=== PATIENT | female | born 1990 | race Caucasian/White ===

== ENCOUNTER 2020-03-21 05:21 | Inpatient (IN) | payer OTHER ==
[2020-03-21] MEDS ORDERED: Sodium Chloride 0.9% 10 ML Syringe FLUSH PRN (05:40)
[2020-03-21] MEDS ORDERED: Sodium Chloride 0.9% 10 ML SDV IV PRN (05:40)
[2020-03-21] MEDS ORDERED: Sodium Chloride 0.9% 2.5 ML Syringe FLUSH PRN (05:40)
[2020-03-21] MEDS ORDERED: Citric Acid/Sodium Citrate Solution 30 ML Cup PO ONE (05:40)
[2020-03-21] MEDS ORDERED: Oxytocin/0.9 % Sodium Chloride 30 UNIT/500 ML BAG IV SCH (05:45)
[2020-03-21] MEDS: Lactated Ringers 1,000 ML IV SCH ×2 (06:03→07:09)
[2020-03-21] MEDS ORDERED: Sodium Chloride 0.9% 20 ML ONE (07:07)
[2020-03-21] MEDS ORDERED: Morphine PF 10 MG/10 ML SDV ONE (07:07)
[2020-03-21] MEDS ORDERED: ceFAZolin 1 GM Vial ONE (07:07)
[2020-03-21] MEDS ORDERED: Phenylephrine 1% 10 MG/ML SDV ONE (07:09)
--- NOTE | 2020-03-21 07:13 | PCM.PREANE ---
Preanesthetic Assessment - Anesthesia/Transfusion/Family Hx Anesthesia History: Prior Anesthesia Without Reaction (prior labor epidural, no prior c/s or spinal) Family History of Anesthesia Reaction: No Transfusion History: No Prior Transfusion(s) Type of Transfusion Reactions: Reports: Unknown Intubation History: Unknown - Review of Systems General: No Symptoms Pulmonary: No Symptoms Cardiovascular: No Symptoms Gastrointestinal: No Symptoms Neurological: No Symptoms Other: Reports: None - Physical Assessment NPO Status Date: 03/20/20 Height: 5 ft 8 in Weight: 83.007 kg ASA Class: 2 Mental Status: Alert & Oriented x3 Airway Class: Mallampati = 1 Dentition: Reports: Normal Dentition ROM/Head Extension: Full Lungs: Clear to Auscultation, Normal Respiratory Effort Cardiovascular: Regular Rhythm - Lab Values: Laboratory Last Values WBC 8.71 K/uL (4.0-11.0) 03/21/20 06:00 RBC 3.49 M/uL (4.30-5.90) L 03/21/20 06:00 Hgb 9.6 g/dL (12.0-16.0) L 03/21/20 06:00 Hct 29.5 % (36.0-46.0) L 03/21/20 06:00 MCV 84.5 fL (80.0-98.0) 03/21/20 06:00 MCH 27.5 pg (27.0-32.0) 03/21/20 06:00 MCHC 32.5 g/dL (31.0-37.0) 03/21/20 06:00 RDW Std Deviation 39.7 fl (28.0-62.0) 03/21/20 06:00 RDW Coeff of Cathi 13 % (11.0-15.0) 03/21/20 06:00 Plt Count 275 K/uL (150-400) 03/21/20 06:00 MPV 10.20 fL (7.40-12.00) 03/21/20 06:00 Nucleated RBC % 0.0 /100WBC 03/21/20 06:00 Nucleated RBCs # 0 K/uL 03/21/20 06:00 Blood Type A POSITIVE 03/21/20 06:00 Antibody Screen NEGATIVE 03/21/20 06:00 - Allergies Allergies/Adverse Reactions: Allergies Allergy/AdvReac Type Severity Reaction Status Date / Time No Known Allergies Allergy Verified 03/21/20 05:40 - Anesthesia Plan Pre-Op Medication Ordered: Antacids - Acknowledgements Anesthesia Type Planned: Spinal Pt an Appropriate Candidate for the Planned Anesthesia: Yes Alternatives and Risks of Anesthesia Discussed w Pt/Guardian: Yes Pt/Guardian Understands and Agrees with Anesthesia Plan: Yes Additional Comments: pmh: gest DM, on metformin, last dose yesterday plan: spinal with intrathecal duramorph PreAnesthesia Questionnaire - Past Health History Medical/Surgical History: Denies Medical/Surgical History HEENT History: Reports: Other (See Below) Other HEENT History: wears glasses/contacts Cardiovascular History: Reports: None Respiratory History: Reports: None Gastrointestinal History: Reports: None Genitourinary History: Reports: None 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: , 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 Musculoskeletal History: Reports: Fracture Other Musculoskeletal History: hx of bilateral fx wrists, thumb and pinky finger - no hardware Neurological History: Reports: Other (See Below) Other Neuro History: hx of motion sickness Psychiatric History: Reports: Anxiety, Depression Endocrine/Metabolic History: Reports: Diabetes, Gestational Hematologic History: Reports: None Immunologic History: Reports: None Oncologic (Cancer) History: Reports: None Dermatologic History: Reports: None - Infectious Disease History Infectious Disease History: Reports: Chicken Pox - Past Surgical History Head Surgeries/Procedures: Reports: None HEENT Surgical History: Reports: Oral Surgery Other HEENT Surgeries/Procedures: wisdom teeth Female Surgical History: Reports: D&C - SUBSTANCE USE Smoking Status *Q: Never Smoker Recreational Drug Use History: No - HOME MEDS Home Medications: Home Meds No122/Iron/Folic Acid [ Multi Tablet] 1 tab PO DAILY 03/14/20 [ History] metFORMIN [Glucophage] 500 mg PO BID 03/14/20 [History] - CURRENT (IN HOUSE) MEDS Current Meds: Current Medications Lactated Ringer's (Ringers, Lactated) 1,000 mls @ 500 mls/hr IV BOLUS DORA Last Admin: 03/21/20 07:09 Dose: 500 mls/hr Oxytocin/Sodium Chloride (Oxytocin 30 Unit/500 Ml-Ns) 30 unit in 500 mls @ 250 mls/hr IV TITRATE DORA Sodium Chloride (Saline Flush) 10 ml FLUSH ASDIRECTED PRN PRN Reason: Keep Vein Open Sodium Chloride (Saline Flush) 2.5 ml FLUSH ASDIRECTED PRN PRN Reason: Keep Vein Open Sodium Chloride (Normal Saline) 10 ml IV ASDIRECTED PRN PRN Reason: IV Use Discontinued Medications Cefazolin Sodium (Ancef) Confirm Administered Dose 2 gm .ROUTE .STK-MED ONE Stop: 03/21/20 07:08 Citric Acid/Sodium Citrate (Bicitra Solution) 30 ml PO ONETIME ONE Stop: 03/21/20 05:41 Sodium Chloride (Normal Saline) Confirm Administered Dose 20 mls @ as directed .ROUTE .STK-MED ONE Stop: 03/21/20 07:08 Morphine Sulfate (Duramorph Pf) Confirm Administered Dose 10 mg .ROUTE .STK-MED ONE Stop: 03/21/20 07:08
[2020-03-21] MEDS ORDERED: fentaNYL 100 MCG/2 ML SDV IVPUSH PRN (07:14)
[2020-03-21] MEDS ORDERED: Acetaminophen/oxyCODONE 325-5 MG Tab PO PRN ×2 (07:14→08:34)
[2020-03-21] MEDS ORDERED: Nalbuphine 10 MG/1 ML Vial IVPUSH PRN (07:14)
[2020-03-21] MEDS ORDERED: Citric Acid/Sodium Citrate Solution 30 ML Cup ONE (07:37)
--- NOTE | 2020-03-21 07:46 | PCM.LDHP ---
L&D History of Present Illness - General Date of Service: 03/21/20 Admit Problem/Dx: Patient Status Order with Admit Dx/Problem 03/21/20 05:20 Patient Status [ADT] Routine Admission Diagnosis/Problem Admission Diagnosis/Problem Source of Information: Patient History Limitations: Reports: No Limitations - History of Present Illness Improves with: Reports: None Worsens with: Reports: None Associated Symptoms: Reports: N - Related Data Allergies/Adverse Reactions: Allergies Allergy/AdvReac Type Severity Reaction Status Date / Time No Known Allergies Allergy Verified 03/21/20 05:40 Home Medications: Home Meds No122/Iron/Folic Acid [ Multi Tablet] 1 tab PO DAILY 03/14/20 [ History] metFORMIN [Glucophage] 500 mg PO BID 03/14/20 [History] Past Medical History - Past Health History Medical/Surgical History: Denies Medical/Surgical History HEENT History: Reports: Other (See Below) Other HEENT History: wears glasses/contacts Cardiovascular History: Reports: None Respiratory History: Reports: None Gastrointestinal History: Reports: None Genitourinary History: Reports: None 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: , 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 Musculoskeletal History: Reports: Fracture Other Musculoskeletal History: hx of bilateral fx wrists, thumb and pinky finger - no hardware Neurological History: Reports: Other (See Below) Other Neuro History: hx of motion sickness Psychiatric History: Reports: Anxiety, Depression Endocrine/Metabolic History: Reports: Diabetes, Gestational Hematologic History: Reports: None Immunologic History: Reports: None Oncologic (Cancer) History: Reports: None Dermatologic History: Reports: None - Infectious Disease History Infectious Disease History: Reports: Chicken Pox - Past Surgical History Head Surgeries/Procedures: Reports: None HEENT Surgical History: Reports: Oral Surgery Other HEENT Surgeries/Procedures: wisdom teeth Female Surgical History: Reports: D&C Social & Family History - Family History Family Medical History: Noncontributory Cardiac: Reports: None Respiratory: Reports: None GI: Reports: None : Reports: None OBGYN: Reports: None Musculoskeletal: Reports: None Neurological: Reports: None Psychiatric: Reports: None Endocrine/Metabolic: Reports: Diabetes, type II, Other (See Below) Other Endocrine/Metabolic Family History: Uncle- borderline blood glucose levels Hematologic: Reports: Other (See Below) Other Hematologic Family History: Uncle in the dad side has Factor V problems Immunologic: Reports: None Dermatologic: Reports: None Oncologic: Reports: Bone, Breast, Lung - Tobacco Use Smoking Status *Q: Never Smoker - Caffeine Use Caffeine Use: Reports: None - Recreational Drug Use Recreational Drug Use: No Drug Use in Last 12 Months: No H&P Review of Systems - Review of Systems: Review Of Systems: See Below General: Reports: No Symptoms HEENT: Reports: No Symptoms Pulmonary: Reports: No Symptoms Cardiovascular: Reports: No Symptoms Gastrointestinal: Reports: No Symptoms Genitourinary: Reports: No Symptoms Musculoskeletal: Reports: No Symptoms Skin: Reports: No Symptoms Psychiatric: Reports: No Symptoms Neurological: Reports: No Symptoms Hematologic/Lymphatic: Reports: No Symptoms Immunologic: Reports: No Symptoms L&D Exam - Exam Exam: See Below - Vital Signs Weight: 83.007 kg - OB Specific Contraction Intensity: Mild Movement: Active Heart Tones: Present Presentation: Vertex - Earl Score Aerl Score Cervix Position: Anterior Earl Score Consistency: Medium Earl Score Effacement: 51-70% Earl Score Dilation: Closed Earl Score Infant's Station: -3 Earl Score Total: 5 - Exam General: Alert, Oriented HEENT: PERRLA, Conjunctiva Clear, EACs Clear, EOMI, Hearing Intact, Mucosa Moist & Justice Addition, Nares Patent, Normal Nasal Septum, Posterior Pharynx Clear, TMs Clear Neck: Supple, Trachea Midline Lungs: Clear to Auscultation, Normal Respiratory Effort Cardiovascular: Regular Rate, Regular Rhythm GI/Abdominal Exam: Normal Bowel Sounds, Soft, Non-Tender, No Organomegaly, No Distention, No Abnormal Bruit, No Mass, Pelvis Stable Rectal Exam: Normal Exam, Normal Rectal Tone Genitourinary: Normal external exam, Normal bimanual exam, Normal speculum exam Back Exam: Normal Inspection, Full Range of Motion Extremities: Normal Inspection, Normal Range of Motion, Non-Tender, No Pedal Edema, Normal Capillary Refill Skin: Warm, Dry, Intact Neurological: Cranial Nerves Intact, Reflexes Equal Bilateral Psychiatric: Alert, Normal Affect, Normal Mood - Patient Data Lab Results Last 24 hrs: Laboratory Results - last 24 hr 03/21/20 03/21/20 Range/Units 06:00 06:00 WBC 8.71 (4.0-11.0) K/uL RBC 3.49 L (4.30-5.90) M/uL Hgb 9.6 L (12.0-16.0) g/dL Hct 29.5 L (36.0-46.0) % MCV 84.5 (80.0-98.0) fL MCH 27.5 (27.0-32.0) pg MCHC 32.5 (31.0-37.0) g/dL RDW Std Deviation 39.7 (28.0-62.0) fl RDW Coeff of Cathi 13 (11.0-15.0) % Plt Count 275 (150-400) K/uL MPV 10.20 (7.40-12.00) fL Nucleated RBC % 0.0 /100WBC Nucleated RBCs # 0 K/uL Blood Type A POSITIVE Antibody Screen NEGATIVE Result Diagrams: 03/21/20 06:00 Problem List Initiated/Reviewed/Updated: Yes Orders Last 24hrs: Active Orders 24 hr Category Date Time Status Patient Status [ADT] Routine ADT 03/21/20 05:20 Active Bradycardia-Neuroaxis [employer] [RC] ROUTINE Care 03/21/20 07:14 Active Non Stress Test [RC] PER UNIT ROUTINE Care 03/21/20 05:40 Active Hypertension-Neuroaxis [employer] [RC] ROUTINE Care 03/21/20 07:14 Active Hypotension-Neuroaxis [employer] [RC] ROUTINE Care 03/21/20 07:14 Active Notify Provider Vital Signs [RC] PRN Care 03/21/20 05:43 Active Oxygen Therapy [RC] PER UNIT ROUTINE Care 03/21/20 07:14 Active Procedure Site Prep Instruct [RC] ASDIRECTED Care 03/21/20 05:[address] [RC] ASDIRECTED Care 03/21/20 05:40 Active Verify Patient Consent Obtain [RC] ASDIRECTED Care 03/21/20 05:40 Active Vital Signs [RC] PER UNIT ROUTINE Care 03/21/20 05:40 Active Vital Signs [RC] Q1H Care 03/21/20 07:14 Active RPR (SYPHILIS SERO) W/ RFLX [REF] Routine Lab 03/21/20 06:00 Received Acetaminophen/oxyCODONE [Percocet 325-5 MG] Med 03/21/20 07:14 Active 1 tab PO ONETIME PRN Lactated Ringers [Ringers, Lactated] 1,000 ml Med 03/21/20 05:45 Active IV BOLUS Nalbuphine [Nubain] Med 03/21/20 07:14 Active 2.5 mg IVPUSH Q3H PRN Oxytocin/0.9 % Sodium Chloride [Oxytocin 30 Unit/500 ML Med 03/21/20 05:45 Active -NS] 30 unit in 500 ml IV TITRATE Sodium Chloride 0.9% [Normal Saline] Med 03/21/20 05:40 Active 10 ml IV ASDIRECTED PRN Sodium Chloride 0.9% [Saline Flush] Med 03/21/20 05:40 Active 10 ml FLUSH ASDIRECTED PRN Sodium Chloride 0.9% [Saline Flush] Med 03/21/20 05:40 Active 2.5 ml FLUSH ASDIRECTED PRN fentaNYL [Sublimaze] Med 03/21/20 07:14 Active 50 mcg IVPUSH Q5M PRN AN Neuroaxis Duramorph Precaution Reflex [OM.PC] PER Oth 03/21/20 07:15 Ordered UNIT ROUTINE AN Neuroaxis Duramorph Precaution Reflex [OM.PC] PER Oth 03/22/20 07:15 Ordered UNIT ROUTINE Peripheral IV Insertion Adult [OM.PC] Routine Oth 03/21/20 05:40 Ordered Schedule Procedure [COMM] Per Unit Routine Oth 03/21/20 05:40 Ordered Resuscitation Status Routine Resus Stat 03/21/20 05:40 Ordered Medication Orders Fentanyl (Sublimaze) 50 mcg IVPUSH Q5M PRN PRN Reason: Pain (severe 7-10) Stop: 03/22/20 07:15 Lactated Ringer's (Ringers, Lactated) 1,000 mls @ 500 mls/hr IV BOLUS DORA Last Admin: 03/21/20 07:09 Dose: 500 mls/hr Infusion: 03/21/20 07:09 Dose: 500 mls/hr Admin: 03/21/20 06:03 Dose: 500 mls/hr Oxytocin/Sodium Chloride (Oxytocin 30 Unit/500 Ml-Ns) 30 unit in 500 mls @ 250 mls/hr IV TITRATE DORA Nalbuphine HCl (Nubain) 2.5 mg IVPUSH Q3H PRN PRN Reason: Pruritis Stop: 03/22/20 07:15 Oxycodone/Acetaminophen (Percocet 325-5 Mg) 1 tab PO ONETIME PRN PRN Reason: Pain (moderate 4-6) Sodium Chloride (Saline Flush) 10 ml FLUSH ASDIRECTED PRN PRN Reason: Keep Vein Open Sodium Chloride (Saline Flush) 2.5 ml FLUSH ASDIRECTED PRN PRN Reason: Keep Vein Open Sodium Chloride (Normal Saline) 10 ml IV ASDIRECTED PRN PRN Reason: IV Use Assessment/Plan Comment:: 39wks admitted for elective repeat C/section.
[2020-03-21] MEDS ORDERED: Octyl 2-Cyanoacrylate 1 Tube ONE (08:27)
[2020-03-21] MEDS ORDERED: Misoprostol 200 MCG Tab RECTAL PRN (08:34)
[2020-03-21] MEDS ORDERED: Bisacodyl 10 MG Supp RECTAL PRN (08:34)
[2020-03-21] MEDS ORDERED: Ondansetron 4 MG/2 ML SDV IVPUSH PRN (08:34)
[2020-03-21] MEDS ORDERED: Methylergonovine 0.2 MG/1 ML Amp IM PRN (08:34)
[2020-03-21] MEDS ORDERED: diphenhydrAMINE 50 MG/ML SDV IVPUSH PRN (08:34)
[2020-03-21] MEDS ORDERED: Tranexamic Acid 1,000 MG in Sodium Chloride 0.9% 100 ML IV PRN (08:34)
[2020-03-21] MEDS ORDERED: Oxytocin 10 Units/1 ML SDV IM PRN (08:34)
[2020-03-21] MEDS ORDERED: Lanolin 100% Cream 7 GM Tube TOP PRN (08:34)
--- NOTE | 2020-03-21 08:41 | PCM.OPNOTE ---
- General Post-Op/Procedure Note Date of Surgery/Procedure: 03/21/20 Operative Procedure(s): Primary C/section. Pre Op Diagnosis: IUP 39+wks. Post-Op Diagnosis: Same Anesthesia Technique: Spinal Primary Surgeon: Cheng Keller Afterschool Babysitter: Mikaela Kothari EBL in mLs: 650 Complications: None Condition: Good
[2020-03-21] MEDS ORDERED: Lactated Ringers 1,000 ML IV SCH (08:45)
[2020-03-21] MEDS: Ketorolac 30 MG/ML SDV IVPUSH SCH ×3 (15:03→20:52)
--- NOTE | 2020-03-21 15:14 | OR ---
SURGEON: Cheng Kelelr MD DATE OF PROCEDURE: 03/21/2020 PREOPERATIVE DIAGNOSIS: Intrauterine at 39 weeks plus admitted for primary elective section. POSTOPERATIVE DIAGNOSIS: Intrauterine at 39 weeks plus admitted for primary elective section. OPERATION PERFORMED: Primary low transverse section. PRIMARY SURGEON: Cheng Keller MD BRUSHER MACHINE: Mikaela Kothari, certified nurse clutch operator. ANESTHESIA: Spinal, Alex Granados and Dr. Tolentino. ESTIMATED BLOOD LOSS: 650 mL. COMPLICATIONS: None. FINDINGS: Male fetus. score reported to be 8 and 9. Weight is not available. INDICATIONS FOR SURGERY: This patient is 29. She is para 1-0-0-1. She had a previous normal spontaneous vaginal delivery complicated by a fourth-degree laceration. The patient stated, after that, she had a slow recovery from the fourth degree, and she feels that this baby is bigger than the first one, and she would like to have elective primary low transverse section, which is her choice and her right. PROCEDURE IN DETAIL: The patient was brought to the OR, properly identified. After adequate level of spinal anesthesia with a Estrada catheter in the bladder, the patient was prepped and draped in sterile fashion as usual. Low transverse Pfannenstiel skin incision done. Gregg's fascia and rectus fascia were opened in direction of the incision. The two recti muscles were and peritoneal cavity was entered. Bladder flap was raised in the usual manner, pushing the bladder away from the lower uterine segment. Low transverse uterine incision done and extended manually with hand. Fetus was in the vertex position, delivered without any problem, cried immediately. score later on reported to be 8 and 9. The weight is not available at the time of the dictation. The placenta delivered spontaneous, complete, and intact, and repair of the lower uterine segment was done with 2-0 Vicryl continuous interlocking in 2 layers. Reperitonealization done with 3-0 Vicryl continuous and then the peritoneal cavity evacuated completely from all blood, blood clot, and amniotic fluid and closed with 3-0 Vicryl continuous and the rectus fascia closed with #1 PDS continuous, Gregg's fascia with 3-0 Vicryl continuous, and the skin closed with 3-0 on a Jovan needle in subcuticular fashion and Dermabond. Instrument and sponge count was correct. The patient tolerated the procedure well, went to recovery room in stable general condition. ABELINO NEVAREZ /[id number]
[2020-03-21] MEDS: Docusate Sodium 100 MG Cap PO SCH ×2 (18:04→20:53)
[2020-03-22] MEDS: Ketorolac 30 MG/ML SDV IVPUSH SCH ×2 (02:53→09:01)
--- NOTE | 2020-03-22 07:35 | PCM48HPAN ---
Post Anesthesia Note - EVALUATION WITHIN 48HRS OF ANESTHETIC Vital Signs in Normal Range: Yes Patient Participated in Evaluation: Yes Respiratory Function Stable: Yes Airway Patent: Yes Cardiovascular Function Stable: Yes Hydration Status Stable: Yes Pain Control Satisfactory: Yes Nausea and Vomiting Control Satisfactory: Yes Mental Status Recovered: Yes Vital Signs: Last Vital Signs Temp 36.4 C 03/22/20 04:00 Pulse 84 03/22/20 07:00 Resp 17 03/22/20 07:00 BP 102/53 L 03/22/20 04:00 Pulse Ox 97 03/22/20 07:00
--- NOTE | 2020-03-22 07:35 | PCM.POSTAN ---
POST ANESTHESIA ASSESSMENT - MENTAL STATUS Mental Status: Alert - VITAL SIGNS Vital Signs: Last Vital Signs Temp 36.4 C 03/22/20 04:00 Pulse 84 03/22/20 07:00 Resp 17 03/22/20 07:00 BP 102/53 L 03/22/20 04:00 Pulse Ox 97 03/22/20 07:00 - RESPIRATORY Respiratory Status: Respiratory Rate WNL - CARDIOVASCULAR CV Status: Pulse Rate WNL - GASTROINTESTINAL GI Status: No Symptoms - POST OP HYDRATION Hydration Status: Adequate & Stable
--- NOTE | 2020-03-22 07:56 | PCM.PNPP ---
- General Info Date of Service: 03/22/20 Admission Dx/Problem (Free Text): Patient Status Order with Admit Dx/Problem 03/21/20 05:20 Patient Status [ADT] Routine Admission Diagnosis/Problem Admission Diagnosis/Problem Functional Status: Reports: Pain Controlled, Tolerating Diet, Ambulating, Urinating - Review of Systems General: Reports: No Symptoms HEENT: Reports: No Symptoms Pulmonary: Reports: No Symptoms Cardiovascular: Reports: No Symptoms Gastrointestinal: Reports: No Symptoms Genitourinary: Reports: No Symptoms Musculoskeletal: Reports: No Symptoms Skin: Reports: No Symptoms Neurological: Reports: No Symptoms Psychiatric: Reports: No Symptoms - General Info Date of Service: 03/22/20 - Patient Data Vital Signs - Most Recent: Last Vital Signs Temp 97.4 F 03/22/20 07:45 Pulse 76 03/22/20 07:45 Resp 16 03/22/20 07:45 BP 98/57 L 03/22/20 07:45 Pulse Ox 97 03/22/20 07:00 Weight - Most Recent: 183 lb I&O - Last 24 Hours: Intake & Output 03/21/20 03/22/20 03/22/20 22:59 06:59 14:59 Output Total 1400 2200 Balance -1400 -2200 Lab Results - Last 24 Hours: Laboratory Results - last 24 hr 03/22/20 Range/Units 05:47 Hgb 8.9 L (12.0-16.0) g/dL Hct 27.9 L (36.0-46.0) % Med Orders - Current: Current Medications Bisacodyl (Dulcolax) 10 mg RECTAL ONETIME PRN PRN Reason: Constipation Diphenhydramine HCl (Benadryl) 25 mg IVPUSH Q6H PRN PRN Reason: Itching or Nausea Docusate Sodium (Colace) 100 mg PO BID [facility] Last Admin: 03/21/20 20:53 Dose: 100 mg Emollient Ointment (Lansinoh Hpa) 0 gm TOP ASDIRECTED PRN PRN Reason: Sore Nipples Lactated Ringer's (Ringers, Lactated) 1,000 mls @ 500 mls/hr IV BOLUS [facility] Last Admin: 03/21/20 07:09 Dose: 500 mls/hr Oxytocin/Sodium Chloride (Oxytocin 30 Unit/500 Ml-Ns) 30 unit in 500 mls @ 250 mls/hr IV TITRATE [facility] Tranexamic Acid 1,000 mg/ (Sodium Chloride) 110 mls @ 660 mls/hr IV ONETIME PRN PRN Reason: Bleeding Lactated Ringer's (Ringers, Lactated) 1,000 mls @ 125 mls/hr IV ASDIRECTED [facility] Last Admin: 03/21/20 11:00 Dose: 125 mls/hr Ibuprofen (Motrin) 800 mg PO Q8H PRN PRN Reason: mild pain or fever Ketorolac Tromethamine (Toradol) 30 mg IVPUSH Q6H [facility] Stop: 03/22/20 08:46 Last Admin: 03/22/20 02:53 Dose: 30 mg Methylergonovine Maleate (Methergine) 0.2 mg IM ONETIME PRN PRN Reason: Excessive Vaginal Bleeding Misoprostol (Cytotec) 1,000 mcg RECTAL ONETIME PRN PRN Reason: excessive bleeding Ondansetron HCl (Zofran) 4 mg IVPUSH Q4H PRN PRN Reason: Nausea/Vomiting Oxycodone/Acetaminophen (Percocet 325-5 Mg) 1 tab PO ONETIME PRN PRN Reason: Pain (moderate 4-6) Oxycodone/Acetaminophen (Percocet 325-5 Mg) 1 tab PO Q4H PRN PRN Reason: Pain (moderate 4-6) Oxycodone/Acetaminophen (Percocet 325-5 Mg) 2 tab PO Q4H PRN PRN Reason: Pain (moderate 4-6) Oxytocin (Pitocin) 10 unit IM ASDIRECTED PRN PRN Reason: Excessive Vaginal Bleeding Sodium Chloride (Saline Flush) 10 ml FLUSH ASDIRECTED PRN PRN Reason: Keep Vein Open Sodium Chloride (Saline Flush) 2.5 ml FLUSH ASDIRECTED PRN PRN Reason: Keep Vein Open Sodium Chloride (Normal Saline) 10 ml IV ASDIRECTED PRN PRN Reason: IV Use Discontinued Medications Cefazolin Sodium (Ancef) Confirm Administered Dose 2 gm .ROUTE .STK-MED ONE Stop: 03/21/20 07:08 Citric Acid/Sodium Citrate (Bicitra Solution) 30 ml PO ONETIME ONE Stop: 03/21/20 05:41 Last Admin: 03/21/20 07:32 Dose: 30 ml Citric Acid/Sodium Citrate (Bicitra Solution) Confirm Administered Dose 30 ml .ROUTE .STK-MED ONE Stop: 03/21/20 07:38 Last Admin: 03/21/20 17:59 Dose: Not Given Fentanyl (Sublimaze) 50 mcg IVPUSH Q5M PRN PRN Reason: Pain (severe 7-10) Stop: 03/22/20 07:15 Sodium Chloride (Normal Saline) Confirm Administered Dose 20 mls @ as directed .ROUTE .STK-MED ONE Stop: 03/21/20 07:08 Morphine Sulfate (Duramorph Pf) Confirm Administered Dose 10 mg .ROUTE .STK-MED ONE Stop: 03/21/20 07:08 Nalbuphine HCl (Nubain) 2.5 mg IVPUSH Q3H PRN PRN Reason: Pruritis Stop: 03/22/20 07:15 Last Admin: 03/21/20 12:22 Dose: 2.5 mg Octyl Cyanoacrylate (Dermabond Advance) Confirm Administered Dose 1 applic .ROUTE .STK-MED ONE Stop: 03/21/20 08:28 Phenylephrine HCl (Price-Synephrine) Confirm Administered Dose 10 mg .ROUTE .STK- MED ONE Stop: 03/21/20 07:10 - Infant Interaction Infant Disposition, : in Room with Family Interaction: Holding Infant Feeding: Breastfed ; Nursed Well Support Person: - Recovery Exam Fundal Tone: Firm Fundal Level: 1 Fingerbreadths Below Umbilicus Fundal Placement: Midline Lochia Amount: Scant Lochia Color: Rubra/Red Perineum Description: Intact, Minimal Bruising/Swelling Bladder Status: Indwelling Catheter in Place Urinary Elimination: Other (see below) Other Urinary Elimination, : waiting for post catheter void - Exam General: Alert, Oriented, Cooperative, No Acute Distress Lungs: Normal Respiratory Effort GI/Abdominal Exam: Soft, Non-Tender Extremities: Normal Inspection, Normal Range of Motion, Non-Tender, Normal Capillary Refill Skin: Warm, Dry, Intact Wound/Incisions: Healing Well Neurological: Normal Gait, Normal Speech, Normal Tone, Strength Equal Bilateral , Sensation Intact Psy/Mental Status: Alert, Normal Affect, Normal Mood - Problem List & Annotations (1) (normal spontaneous vaginal delivery) SNOMED Code(s): 09937244, 180624906 Code(s): O80 - ENCOUNTER FOR FULL-TERM UNCOMPLICATED DELIVERY Status: Acute Priority: High Current Visit: Yes - Problem List Review Problem List Initiated/Reviewed/Updated: Yes - Plan Plan:: 39wks admitted for elective repeat C/section. PP Day1 A: Ambulating, voiding, and well. Incision healing well. No concerns/questions at this time. P: Routine plan of care.
[2020-03-22] MEDS: Docusate Sodium 100 MG Cap PO SCH ×2 (09:00→21:02)
--- NOTE | 2020-03-22 10:23 | PCM.DCSUM1 ---
Discharge Summary - Hospital Course Free Text/Narrative:: Discharge home with infant. Follow up in 1 weeks for post op visit and 6 weeks for visit. Diagnosis: Stroke: No Modified [place] Scale: No Symptoms at All Modified [place] Scale Score: 0 - Discharge Data Discharge Date: 03/22/20 Discharge Disposition: Home, Self-Care 01 Condition: Good - Referral to Home Health Primary Care Physician: PCP None - Discharge Diagnosis/Problem(s) (1) delivery delivered SNOMED Code(s): 048628629 ICD Code: O82 - ENCOUNTER FOR DELIVERY WITHOUT INDICATION Status: Acute Priority: High Current Visit: Yes - Patient Summary/Data Operative Procedure(s) Performed: Primary C/section. - Patient Instructions Diet: Usual Diet as Tolerated Activity: As Tolerated, No Strenuous Activities, Rest and Relax Today Driving: Do Not Drive Showering/Bathing: May Shower Wound/Incision Care: Keep Operative Site/Wound Site Clean and Dry Notify Provider of: Fever, Increased Pain, Swelling and Redness, Drainage, Nausea and/or Vomiting Other/Special Instructions: Discharge home with . Follow up in 1 weeks for post op visit and 6 weeks for visit. - Discharge Plan *PRESCRIPTION DRUG MONITORING PROGRAM REVIEWED*: Not Applicable *COPY OF PRESCRIPTION DRUG MONITORING REPORT IN PATIENT HAJA: Not Applicable Prescriptions/Med Rec: Acetaminophen/oxyCODONE [Percocet 325-5 MG] 1 - 2 tab PO Q6HR PRN #30 tablet PRN Reason: Pain (Moderate 4-6) Ibuprofen [Motrin] 800 mg PO Q8H PRN #90 tablet PRN Reason: mild pain or fever Home Medications: Home Meds No122/Iron/Folic Acid [ Multi Tablet] 1 tab PO DAILY 03/14/20 [ History] metFORMIN [Glucophage] 500 mg PO BID 03/14/20 [History] Acetaminophen/oxyCODONE [Percocet 325-5 MG] 1 - 2 tab PO Q6HR PRN #30 tablet [Rx] Ibuprofen [Motrin] 800 mg PO Q8H PRN #90 tablet 03/22/20 [Rx] Oxygen Therapy Mode: Room Air Referrals: [facility] [Outside] Cheng Keller MD [Physician] - 03/27/20 2:00 pm Juliana Escamilla CNM [Mid-] - 05/02/20 1:30 pm - Discharge Summary/Plan Comment DC Time >30 min.: Yes - General Info Date of Service: 03/22/20 Admission Dx/Problem (Free Text: Patient Status Order with Admit Dx/Problem 03/21/20 05:20 Patient Status [ADT] Routine Admission Diagnosis/Problem Admission Diagnosis/Problem Functional Status: Reports: Pain Controlled, Tolerating Diet, Ambulating, Urinating - Review of Systems General: Reports: No Symptoms HEENT: Reports: No Symptoms Pulmonary: Reports: No Symptoms Cardiovascular: Reports: No Symptoms Gastrointestinal: Reports: No Symptoms Genitourinary: Reports: No Symptoms Musculoskeletal: Reports: No Symptoms Skin: Reports: No Symptoms Neurological: Reports: No Symptoms Psychiatric: Reports: No Symptoms - Patient Data Vitals - Most Recent: Last Vital Signs Temp 36.3 C 03/22/20 07:45 Pulse 76 03/22/20 07:45 Resp 16 03/22/20 09:00 BP 98/57 L 03/22/20 07:45 Pulse Ox 100 03/22/20 09:00 Weight - Most Recent: 83.007 kg I&O - Last 24 hours: Intake & Output 03/21/20 03/22/20 03/22/20 22:59 06:59 14:59 Output Total 1400 2200 Balance -1400 -2200 Lab Results - Last 24 hrs: Laboratory Results - last 24 hr 03/22/20 Range/Units 05:47 Hgb 8.9 L (12.0-16.0) g/dL Hct 27.9 L (36.0-46.0) % Med Orders - Current: Current Medications Bisacodyl (Dulcolax) 10 mg RECTAL ONETIME PRN PRN Reason: Constipation Diphenhydramine HCl (Benadryl) 25 mg IVPUSH Q6H PRN PRN Reason: Itching or Nausea Docusate Sodium (Colace) 100 mg PO BID [facility] Last Admin: 03/22/20 09:00 Dose: 100 mg Emollient Ointment (Lansinoh Hpa) 0 gm TOP ASDIRECTED PRN PRN Reason: Sore Nipples Lactated Ringer's (Ringers, Lactated) 1,000 mls @ 500 mls/hr IV BOLUS [facility] Last Admin: 03/21/20 07:09 Dose: 500 mls/hr Oxytocin/Sodium Chloride (Oxytocin 30 Unit/500 Ml-Ns) 30 unit in 500 mls @ 250 mls/hr IV TITRATE [facility] Tranexamic Acid 1,000 mg/ (Sodium Chloride) 110 mls @ 660 mls/hr IV ONETIME PRN PRN Reason: Bleeding Lactated Ringer's (Ringers, Lactated) 1,000 mls @ 125 mls/hr IV ASDIRECTED [facility] Last Admin: 03/21/20 11:00 Dose: 125 mls/hr Ibuprofen (Motrin) 800 mg PO Q8H PRN PRN Reason: mild pain or fever Methylergonovine Maleate (Methergine) 0.2 mg IM ONETIME PRN PRN Reason: Excessive Vaginal Bleeding Misoprostol (Cytotec) 1,000 mcg RECTAL ONETIME PRN PRN Reason: excessive bleeding Ondansetron HCl (Zofran) 4 mg IVPUSH Q4H PRN PRN Reason: Nausea/Vomiting Oxycodone/Acetaminophen (Percocet 325-5 Mg) 1 tab PO ONETIME PRN PRN Reason: Pain (moderate 4-6) Oxycodone/Acetaminophen (Percocet 325-5 Mg) 1 tab PO Q4H PRN PRN Reason: Pain (moderate 4-6) Oxycodone/Acetaminophen (Percocet 325-5 Mg) 2 tab PO Q4H PRN PRN Reason: Pain (moderate 4-6) Oxytocin (Pitocin) 10 unit IM ASDIRECTED PRN PRN Reason: Excessive Vaginal Bleeding Sodium Chloride (Saline Flush) 10 ml FLUSH ASDIRECTED PRN PRN Reason: Keep Vein Open Sodium Chloride (Saline Flush) 2.5 ml FLUSH ASDIRECTED PRN PRN Reason: Keep Vein Open Sodium Chloride (Normal Saline) 10 ml IV ASDIRECTED PRN PRN Reason: IV Use Discontinued Medications Cefazolin Sodium (Ancef) Confirm Administered Dose 2 gm .ROUTE .STK-MED ONE Stop: 03/21/20 07:08 Citric Acid/Sodium Citrate (Bicitra Solution) 30 ml PO ONETIME ONE Stop: 03/21/20 05:41 Last Admin: 03/21/20 07:32 Dose: 30 ml Citric Acid/Sodium Citrate (Bicitra Solution) Confirm Administered Dose 30 ml .ROUTE .STK-MED ONE Stop: 03/21/20 07:38 Last Admin: 03/21/20 17:59 Dose: Not Given Fentanyl (Sublimaze) 50 mcg IVPUSH Q5M PRN PRN Reason: Pain (severe 7-10) Stop: 03/22/20 07:15 Sodium Chloride (Normal Saline) Confirm Administered Dose 20 mls @ as directed .ROUTE .STK-MED ONE Stop: 03/21/20 07:08 Ketorolac Tromethamine (Toradol) 30 mg IVPUSH Q6H [facility]ORA Stop: 03/22/20 08:46 Last Admin: 03/22/20 09:01 Dose: 30 mg Morphine Sulfate (Duramorph Pf) Confirm Administered Dose 10 mg .ROUTE .STK-MED ONE Stop: 03/21/20 07:08 Nalbuphine HCl (Nubain) 2.5 mg IVPUSH Q3H PRN PRN Reason: Pruritis Stop: 03/22/20 07:15 Last Admin: 03/21/20 12:22 Dose: 2.5 mg Octyl Cyanoacrylate (Dermabond Advance) Confirm Administered Dose 1 applic .ROUTE .STK-MED ONE Stop: 03/21/20 08:28 Phenylephrine HCl (Price-Synephrine) Confirm Administered Dose 10 mg .ROUTE .STK- MED ONE Stop: 03/21/20 07:10 - Exam General: Reports: Alert, Oriented, Cooperative, No Acute Distress Lungs: Reports: Normal Respiratory Effort GI/Abdominal Exam: Soft, Non-Tender (Female) Exam: Deferred, Vaginal Bleeding Rectal (Female) Exam: Deferred Back Exam: Reports: Normal Inspection, Full Range of Motion Extremities: Normal Inspection, Normal Range of Motion, Non-Tender, No Pedal Edema Skin: Reports: Warm, Dry, Intact Wound/Incisions: Reports: Healing Well, No Drainage. Denies: Erythema Neurological: Reports: No New Focal Deficit, Normal Gait, Normal Speech, Normal Tone, Strength Equal Bilateral, Sensation Intact Psy/Mental Status: Reports: Alert, Normal Affect, Normal Mood
[2020-03-22] MEDS: Ibuprofen 800 MG Tab PO PRN (16:18)
[2020-03-22] MEDS: Acetaminophen/oxyCODONE 325-5 MG Tab PO PRN ×2 (16:23→19:43)
[2020-03-23] MEDS: Ibuprofen 800 MG Tab PO PRN (04:00)
[2020-03-23] MEDS: Acetaminophen/oxyCODONE 325-5 MG Tab PO PRN ×2 (04:00→08:16)
[2020-03-23] MEDS: Docusate Sodium 100 MG Cap PO SCH (08:10)
--- NOTE | 2020-03-23 09:43 | PCM.PN ---
- General Info Date of Service: 03/23/20 Admission Dx/Problem (Free Text): Patient Status Order with Admit Dx/Problem 03/21/20 05:20 Patient Status [ADT] Routine Admission Diagnosis/Problem Admission Diagnosis/Problem Functional Status: Reports: Pain Controlled, Tolerating Diet, Ambulating, Urinating - Review of Systems General: Reports: No Symptoms HEENT: Reports: No Symptoms Pulmonary: Reports: No Symptoms Cardiovascular: Reports: No Symptoms Gastrointestinal: Reports: No Symptoms Genitourinary: Reports: No Symptoms Musculoskeletal: Reports: No Symptoms Skin: Reports: No Symptoms Neurological: Reports: No Symptoms Psychiatric: Reports: No Symptoms - Patient Data Vitals - Most Recent: Last Vital Signs Temp 35.8 C L 03/23/20 08:00 Pulse 70 03/23/20 08:00 Resp 16 03/23/20 08:00 BP 108/60 03/23/20 08:00 Pulse Ox 98 03/23/20 08:00 Weight - Most Recent: 83.007 kg Lab Results Last 24 Hours: Laboratory Results - last 24 hr 03/21/20 Range/Units 06:00 RPR Non-Reac (Non-Reac) Med Orders - Current: Current Medications Bisacodyl (Dulcolax) 10 mg RECTAL ONETIME PRN PRN Reason: Constipation Diphenhydramine HCl (Benadryl) 25 mg IVPUSH Q6H PRN PRN Reason: Itching or Nausea Docusate Sodium (Colace) 100 mg PO BID [facility] Last Admin: 03/23/20 08:10 Dose: 100 mg Emollient Ointment (Lansinoh Hpa) 0 gm TOP ASDIRECTED PRN PRN Reason: Sore Nipples Lactated Ringer's (Ringers, Lactated) 1,000 mls @ 500 mls/hr IV BOLUS [facility] Last Admin: 03/21/20 07:09 Dose: 500 mls/hr Oxytocin/Sodium Chloride (Oxytocin 30 Unit/500 Ml-Ns) 30 unit in 500 mls @ 250 mls/hr IV TITRATE [facility] Tranexamic Acid 1,000 mg/ (Sodium Chloride) 110 mls @ 660 mls/hr IV ONETIME PRN PRN Reason: Bleeding Lactated Ringer's (Ringers, Lactated) 1,000 mls @ 125 mls/hr IV ASDIRECTED [facility] Last Admin: 03/21/20 11:00 Dose: 125 mls/hr Ibuprofen (Motrin) 800 mg PO Q8H PRN PRN Reason: mild pain or fever Last Admin: 03/23/20 04:00 Dose: 800 mg Methylergonovine Maleate (Methergine) 0.2 mg IM ONETIME PRN PRN Reason: Excessive Vaginal Bleeding Misoprostol (Cytotec) 1,000 mcg RECTAL ONETIME PRN PRN Reason: excessive bleeding Ondansetron HCl (Zofran) 4 mg IVPUSH Q4H PRN PRN Reason: Nausea/Vomiting Oxycodone/Acetaminophen (Percocet 325-5 Mg) 1 tab PO ONETIME PRN PRN Reason: Pain (moderate 4-6) Oxycodone/Acetaminophen (Percocet 325-5 Mg) 1 tab PO Q4H PRN PRN Reason: Pain (moderate 4-6) Last Admin: 03/23/20 08:16 Dose: 1 tab Oxycodone/Acetaminophen (Percocet 325-5 Mg) 2 tab PO Q4H PRN PRN Reason: Pain (moderate 4-6) Last Admin: 03/22/20 23:47 Dose: 2 tab Oxytocin (Pitocin) 10 unit IM ASDIRECTED PRN PRN Reason: Excessive Vaginal Bleeding Sodium Chloride (Saline Flush) 10 ml FLUSH ASDIRECTED PRN PRN Reason: Keep Vein Open Sodium Chloride (Saline Flush) 2.5 ml FLUSH ASDIRECTED PRN PRN Reason: Keep Vein Open Sodium Chloride (Normal Saline) 10 ml IV ASDIRECTED PRN PRN Reason: IV Use Discontinued Medications Cefazolin Sodium (Ancef) Confirm Administered Dose 2 gm .ROUTE .STK-MED ONE Stop: 03/21/20 07:08 Citric Acid/Sodium Citrate (Bicitra Solution) 30 ml PO ONETIME ONE Stop: 03/21/20 05:41 Last Admin: 03/21/20 07:32 Dose: 30 ml Citric Acid/Sodium Citrate (Bicitra Solution) Confirm Administered Dose 30 ml .ROUTE .STK-MED ONE Stop: 03/21/20 07:38 Last Admin: 03/21/20 17:59 Dose: Not Given Fentanyl (Sublimaze) 50 mcg IVPUSH Q5M PRN PRN Reason: Pain (severe 7-10) Stop: 03/22/20 07:15 Sodium Chloride (Normal Saline) Confirm Administered Dose 20 mls @ as directed .ROUTE .STK-MED ONE Stop: 03/21/20 07:08 Ketorolac Tromethamine (Toradol) 30 mg IVPUSH Q6H [facility] Stop: 03/22/20 08:46 Last Admin: 03/22/20 09:01 Dose: 30 mg Morphine Sulfate (Duramorph Pf) Confirm Administered Dose 10 mg .ROUTE .STK-MED ONE Stop: 03/21/20 07:08 Nalbuphine HCl (Nubain) 2.5 mg IVPUSH Q3H PRN PRN Reason: Pruritis Stop: 03/22/20 07:15 Last Admin: 03/21/20 12:22 Dose: 2.5 mg Octyl Cyanoacrylate (Dermabond Advance) Confirm Administered Dose 1 applic .ROUTE .STK-MED ONE Stop: 03/21/20 08:28 Phenylephrine HCl (Price-Synephrine) Confirm Administered Dose 10 mg .ROUTE .STK- MED ONE Stop: 03/21/20 07:10 - Exam General: Alert, Oriented, Cooperative, No Acute Distress, Mild Distress HEENT: Pupils Equal, Pupils Reactive, EOMI, Mucous Membr. Moist/[place] Neck: Supple Lungs: Clear to Auscultation, Normal Respiratory Effort Cardiovascular: Regular Rate, Regular Rhythm GI/Abdominal Exam: Normal Bowel Sounds, Soft, Non-Tender, No Organomegaly, No Mass, Pelvis Stable (Female) Exam: Deferred, Vaginal Bleeding Back Exam: Normal Inspection, Full Range of Motion Extremities: Normal Inspection, Normal Range of Motion, Non-Tender, No Pedal Edema Skin: Warm, Dry, Intact Wound/Incisions: Healing Well Neurological: No New Focal Deficit, Normal Gait, Normal Speech, Normal Tone, Strength Equal Bilateral Psy/Mental Status: Alert, Normal Affect, Normal Mood Sepsis Event Note - Evaluation Sepsis Screening Result: No Definite Risk - Focused Exam Vital Signs: Vital Signs Temp Pulse Resp BP Pulse Ox 03/23/20 08:00 35.8 C L 70 16 108/60 98 03/23/20 04:00 36.3 C 67 16 101/59 L 95 03/23/20 00:00 36.7 C 77 17 101/59 L 96 Date Exam was Performed: 03/23/20 Time Exam was Performed: 09:42 - Problem List & Annotations (1) delivery delivered SNOMED Code(s): 492798596 Code(s): O82 - ENCOUNTER FOR DELIVERY WITHOUT INDICATION Status: Acute Priority: High Current Visit: Yes - Problem List Review Problem List Initiated/Reviewed/Updated: Yes - My Orders Last 24 Hours: My Active Orders 03/22/20 10:23 Ready for Discharge [RC] PER UNIT ROUTINE - Plan Plan:: 39wks admitted for elective repeat C/section. PP Day1 A: Ambulating, voiding, and well. Incision healing well. No concerns/questions at this time. P: Routine plan of care.
== END 2020-03-23 11:40 | disposition home or self-care (01) | DRG 788 ==
LOC: MW.OB 05:21
PROVIDERS: ADMIT Obstetrics & Gynecology; ATTEND Obstetrics & Gynecology
PROC: 10D00Z1 Extraction of Products of Conception, Low, Open Approach (ICD-10-PCS; principal; 2020-03-21)
DX: O24.429 Gestational diabetes mellitus in childbirth, unspecified control (principal); Z37.0 Single live birth; Z3A.39 39 weeks gestation of pregnancy
CPT/HCPCS: 36415; 59025; 85014; 85018; 85027; 86592; 86593; 86850; 86900; 86901; A9270-GY; J0690; J1885; J2270; J2300; J2370; J7120